=== PATIENT | male | born 1990 | race African-American/Black ===

== ENCOUNTER → 2022-03-08 | Outpatient (CLI) | payer OTHER | LOC: MHCPAIN 13:37 | DX: M47.817 Spondylosis without myelopathy or radiculopathy, lumbosacral region (principal); M53.3 Sacrococcygeal disorders, not elsewhere classified; M54.50 Low back pain, unspecified | CPT/HCPCS: G0463 ==

== ENCOUNTER → 2022-08-22 | Outpatient (CLI) | payer OTHER | LOC: MHCPAIN 06-16 11:30 | DX: M47.817 Spondylosis without myelopathy or radiculopathy, lumbosacral region (principal); M54.50 Low back pain, unspecified; M53.3 Sacrococcygeal disorders, not elsewhere classified ==

== ENCOUNTER → 2022-10-20 | Outpatient (CLI) | payer OTHER | LOC: MHCPAIN 09-22 16:54 | DX: M47.817 Spondylosis without myelopathy or radiculopathy, lumbosacral region (principal); M54.50 Low back pain, unspecified; M53.3 Sacrococcygeal disorders, not elsewhere classified | CPT/HCPCS: J1100; J2250; J3010 ==

== ENCOUNTER → 2022-11-01 | Outpatient (CLI) | payer OTHER | LOC: MHCPAIN 09:08 | DX: M47.896 Other spondylosis, lumbar region (principal); M54.50 Low back pain, unspecified; M53.3 Sacrococcygeal disorders, not elsewhere classified | CPT/HCPCS: G0463 ==